=== PATIENT | female | born 1945 | race Caucasian/White ===

== ENCOUNTER 2018-01-01 09:03 | Emergency (ER) | payer MEDICARE, OTHER ==
[2018-01-01 09:10] VITALS: BP 157/92
--- NOTE | 2018-01-01 09:39 | RAD ---
ANKLE RIGHT 3V History: Right ankle pain, fall today Comparison: None. Findings: 3 views of the right ankle are submitted. There is small posterior calcaneal enthesophyte. No acute fracture or dislocation is identified. Impression: 1. No acute osseous abnormality is identified by radiographs. Electronically signed by: Mark Tavarez MD (01/01/2018 9:36 AM) [id number]
--- NOTE | 2018-01-01 10:10 | ED.ADGEN ---
Past History Past Medical History: Cancer, Other Past Surgical History: Other Alcohol Use: None Drug Use: None Adult General Chief Complaint Chief Complaint Right ankle pain HPI HPI Patient is a 72 year old female who presents right ankle sprain. Patient states- year-old right ankle on a curb just prior to ED arrival. Reports pain and swelling over her right lateral malleolus. Reports some pain with weightbearing. No other injury or complaint. History of osteoporosis. Take Celebrex daily.[] Review of Systems Review of Systems Review of systems as per history of present illness. All other systems were reviewed and found to be within normal limits, except as documented in this note. Physical Exam Physical Exam Constitutional: Well developed, well nourished, no acute distress, non-toxic appearance. []] Extremities: Right lower extremity, right lateral ankle tenderness swelling pain , no gross deformity. Range of motion intact. Pulses 2+[] Current Patient Data Vital Signs Vital Signs Date Time Temp Pulse Resp B/P (MAP) Pulse Ox O2 Delivery O2 Flow Rate FiO2 01/01/18 09:10 98.0 73 16 97 Room Air EKG EKG [] Radiology/Procedures Radiology/Procedures [X-ray right ankle: No obvious displaced fracture per radiology report] Course & Med Decision Making Course & Med Decision Making Pertinent Labs and Imaging studies reviewed. (See chart for details) [No identifiable fracture on x-ray. Patient placed in splint for support. Recommendations are supportive care with PCP follow-up if symptoms persist.] Final Impression Final Impression [#1 right ankle injury] Problems: Dragon Disclaimer Dragon Disclaimer This electronic medical record was generated, in whole or in part, using a voice recognition dictation system. CHARLIE STREET DO January 01, 2018 10:10
== END 2018-01-01 09:45 | disposition home or self-care (01) ==
LOC: ER 09:03
DX: S99.911A Unspecified injury of right ankle, initial encounter (principal); M81.0 Age-related osteoporosis without current pathological fracture; X50.1XXA Overexertion from prolonged static or awkward postures, initial encounter; Y93.89 Activity, other specified; Y99.8 Other external cause status; Y92.89 Other specified places as the place of occurrence of the external cause
CPT/HCPCS: 29515; 73610; 99284